=== PATIENT | male | born 1960 | race African-American/Black ===

== ENCOUNTER 2017-07-24 03:02 | Emergency (ER) | payer MEDICAID ==
[~2017-07-24] VITALS: Ht 167.6 cm; Wt 70.0 kg
[2017-07-24 03:25] VITALS: BP 181/118
== END 2017-07-24 10:37 | disposition left against medical advice (07) ==
LOC: ER 03:02
DX: Z53.21 Procedure and treatment not carried out due to patient leaving prior to being seen by health care provider (principal)